=== PATIENT | male | born 1950 | race Caucasian/White ===

== ENCOUNTER 2020-11-13 05:41 | Day surgery (SDC) | payer MEDICARE, BC ==
[2020-11-02 13:59] LABS: BASOPHILS # (AUTO) 0.1 X10'3 (0-0.2); BASOPHILS % (AUTO) 0.8 % (0-1); EOSINOPHILS # (AUTO) 0.4 X10'3 (0-0.9); EOSINOPHILS % (AUTO) 5.4 % (0-6); LYMPHOCYTES # (AUTO) 1.5 X10'3 (1.1-4.8); LYMPHOCYTES % (AUTO) 20.3 % (21-51); MEAN CORPUSCULAR HEMOGLOBIN 35.1 PG (27.0-31.0); MEAN CORPUSCULAR HGB CONC 34.7 g/dL (33.0-36.5); MEAN CORPUSCULAR VOLUME 101.2 FL (78-98); MEAN PLATELET VOLUME 7.7 FL (7.4-10.4); MONOCYTES # (AUTO) 0.9 X10'3 (0-0.9); MONOCYTES % (AUTO) 11.8 % (2-12); NEUTROPHILS # (AUTO) 4.6 X10'3 (1.8-7.7); NEUTROPHILS % (AUTO) 61.7 % (42-75); PRE OP HEMATOCRIT 43.1 % (42.0-52.0); PRE OP PLATELET COUNT 267 X10'3 (140-440); RED BLOOD COUNT 4.26 X10'6 (4.70-6.10); RED CELL DISTRIBUTION WIDTH 14.1 % (11.5-14.5)
[2020-11-02 14:12] LABS: ALBUMIN 3.5 G/DL (3.4-5.0); ALKALINE PHOSPHATASE 61 IU/L (46-116); BLOOD UREA NITROGEN 12 MG/DL (7-18); BUN/CREATININE RATIO 10.2 (5.4-32.0); CALCIUM 8.9 MG/DL (8.5-10.1); CHLORIDE 104 MMOL/L (99-107); CREATININE 1.18 MG/DL (0.60-1.10); PRE OP ALT 46 U/L (30-65); PRE OP ANION GAP 10 (8-16); PRE OP AST 31 U/L (10-37); PRE OP BILIRUB, TOTAL 0.9 MG/DL (0.0-1.0); PRE OP GLUCOSE 126 MG/DL (70-104); PRE OP POTASSIUM 3.9 MMOL/L (3.4-5.1); PRE OP SODIUM 138 MMOL/L (135-145); TOTAL CARBON DIOXIDE 24.3 MMOL/L (24-32); eGFR 61 ML/MIN
[~2020-11-13] VITALS: Ht 167.6 cm; Wt 105.1 kg
[~2020-11-13 05:41] MED LIST: AMLO2.5T2 PO; ATOR40TA PO; CARV3.122 PO; DOCUMENT DATE & TIME OF BETA-BLOCKER PO ONE; LISI40TA13 PO; MELO-102 PO; ceFAZolin 2gm in dextrose, iso 50 ML IV ONE; famotidine 20mg tablet PO ONE; ringers solution, lacted 1,000 ML IV SCH
[2020-11-13 05:50] VITALS: BP 136/69
[2020-11-13] MEDS ORDERED: meperidine/PF 25mg/ml syringe IV PRN ×3 (07:25)
[2020-11-13] MEDS ORDERED: proCHLORperazine 10 MG/2 ml inj IV PRN (07:25)
[2020-11-13] MEDS ORDERED: ondansetron/PF 4mg/2ml inj IV PRN (07:25)
[2020-11-13] MEDS ORDERED: ringers solution, lacted 1,000 ML IV SCH (07:25)
[2020-11-13] MEDS ORDERED: morphine 4 MG/ML inj SYRINge IV PRN (07:25)
[2020-11-13] MEDS ORDERED: morphine 2 MG/ML inj. syringe IV PRN (07:25)
[2020-11-13] MEDS ORDERED: BUPIVAcaine/PF 2.5mg/ml (0.25%) 10ml vial ONE (08:36)
[2020-11-13] MEDS ORDERED: fentaNYL/PF 50MCG/1 ML 2ML syringe ONE (08:40)
[2020-11-13] MEDS ORDERED: midazolam 1 mg/ML 2ml injection ONE (08:41)
[2020-11-13] MEDS ORDERED: LIDOcaine 0.5% (5mg/ml) 50ml vial ONE (08:42)
[2020-11-13 09:07] VITALS: BP 143/73
--- NOTE | 2020-11-13 09:07 | NUR ---
Received from OR via , accompanied by Anesthesiologist DR WHITNEY and report given by Anesthesiolgist. AWAKE AND DEV PAIN. VITALS STABLE. DRESSING DI. FINGERS WARM AND PINK.
[2020-11-13 09:17] VITALS: BP 131/64
[2020-11-13 09:27] VITALS: BP 134/67
[2020-11-13 09:37] VITALS: BP 156/78
--- NOTE | 2020-11-13 09:57 | NUR ---
AWAKE AND ORIENTED. VITALS STABLE. DRESSING DI. DEV PAIN. HOME WITH HIS AT THIS TIME.
== END 2020-11-13 09:57 | disposition home or self-care (01) ==
LOC: PAS 05:41
PROVIDERS: ATTEND Orthopaedic Surgery Hand Surgery
DX: G56.01 Carpal tunnel syndrome, right upper limb (principal); Z20.822 Contact with and (suspected) exposure to COVID-19; I10 Essential (primary) hypertension; I25.10 Atherosclerotic heart disease of native coronary artery without angina pectoris; I25.2 Old myocardial infarction; E66.9 Obesity, unspecified; Z68.37 Body mass index [BMI] 37.0-37.9, adult; Z95.1 Presence of aortocoronary bypass graft; Z90.49 Acquired absence of other specified parts of digestive tract; Z98.890 Other specified postprocedural states; Z72.89 Other problems related to lifestyle; Z79.899 Other long term (current) drug therapy; Z85.028 Personal history of other malignant neoplasm of stomach; Z87.891 Personal history of nicotine dependence
CPT/HCPCS: 36415; 64721; 80053; 82948; 85025; 93005; J2001; J2250; J3010; J3490; U0003; 87635; A4215; J7120

== ENCOUNTER 2020-12-11 05:31 | Day surgery (SDC) | payer MEDICARE, BC ==
[2020-12-04 14:25] LABS: BASOPHILS # (AUTO) 0.1 X10'3 (0-0.2); BASOPHILS % (AUTO) 0.9 % (0-1); EOSINOPHILS # (AUTO) 0.7 X10'3 (0-0.9); LYMPHOCYTES # (AUTO) 1.5 X10'3 (1.1-4.8); LYMPHOCYTES % (AUTO) 18.1 % (21-51); MEAN CORPUSCULAR HEMOGLOBIN 35.2 PG (27.0-31.0); MEAN CORPUSCULAR VOLUME 103.6 FL (78-98); MEAN PLATELET VOLUME 7.6 FL (7.4-10.4); MONOCYTES # (AUTO) 0.9 X10'3 (0-0.9); MONOCYTES % (AUTO) 11.2 % (2-12); NEUTROPHILS # (AUTO) 5.1 X10'3 (1.8-7.7); NEUTROPHILS % (AUTO) 61.8 % (42-75); PRE OP HEMATOCRIT 45.2 % (42.0-52.0); PRE OP HEMOGLOBIN 15.4 g/dL (14.0-17.9); PRE OP PLATELET COUNT 273 X10'3 (140-440); RED BLOOD COUNT 4.36 X10'6 (4.70-6.10); RED CELL DISTRIBUTION WIDTH 14.3 % (11.5-14.5)
[2020-12-04 14:40] LABS: ALBUMIN 3.6 G/DL (3.4-5.0); ALKALINE PHOSPHATASE 73 IU/L (46-116); BLOOD UREA NITROGEN 14 MG/DL (7-18); BUN/CREATININE RATIO 12.5 (5.4-32.0); CHLORIDE 105 MMOL/L (99-107); CREATININE 1.12 MG/DL (0.60-1.10); PRE OP ALT 42 U/L (30-65); PRE OP ANION GAP 9 (8-16); PRE OP AST 29 U/L (10-37); PRE OP BILIRUB, TOTAL 0.8 MG/DL (0.0-1.0); PRE OP GLUCOSE 167 MG/DL (70-104); PRE OP POTASSIUM 3.9 MMOL/L (3.4-5.1); PRE OP SODIUM 140 MMOL/L (135-145); TOTAL PROTEIN 7.2 G/DL (6.4-8.2); eGFR 65 ML/MIN
[~2020-12-11] VITALS: Ht 167.6 cm; Wt 102.6 kg
[~2020-12-11 05:31] MED LIST changes: -ceFAZolin 2gm in dextrose, iso 50 ML IV ONE; +cefazolin/dext.iso 2gm/100ml 100 ML IV ONE
[2020-12-11 05:40] VITALS: BP 124/67
[2020-12-11] MEDS ORDERED: BUPIVAcaine/PF 2.5 mg/ml (0.25%) 30ml vial ONE (06:43)
[2020-12-11] MEDS ORDERED: fentaNYL/PF 50MCG/1 ML 2ML syringe ONE (07:40)
[2020-12-11] MEDS ORDERED: midazolam 1 mg/ML 2ml injection ONE (07:40)
[2020-12-11] MEDS ORDERED: LIDOcaine 0.5% (5mg/ml) 50ml vial ONE (07:42)
[2020-12-11] MEDS ORDERED: propofol inj 20 ML IV ONE (07:57)
[2020-12-11 08:10] VITALS: BP 121/66
[2020-12-11] MEDS ORDERED: hydrALAZINE 20mg/ml inj. IV PRN (08:10)
[2020-12-11] MEDS ORDERED: ringers solution, lacted 1,000 ML IV SCH (08:10)
[2020-12-11] MEDS ORDERED: morphine 2 MG/ML inj. syringe IV PRN (08:10)
[2020-12-11] MEDS ORDERED: ondansetron/PF 4mg/2ml inj IV PRN (08:10)
[2020-12-11] MEDS ORDERED: acetaminophen 1,000mg/100ml IV 100 ML IV PRN (08:10)
[2020-12-11] MEDS ORDERED: labetalol 20mg/4ml (5mg/ml) syringe IV PRN (08:10)
[2020-12-11] MEDS ORDERED: morphine 4 MG/ML inj SYRINge IV PRN (08:10)
[2020-12-11] MEDS ORDERED: meperidine/PF 25mg/ml syringe IV PRN ×3 (08:10)
[2020-12-11] MEDS ORDERED: proCHLORperazine 10 MG/2 ml inj IV PRN (08:10)
--- NOTE | 2020-12-11 08:10 | NUR ---
ADMITTED TO PACU FROM OR ACCOMPANIED BY ANESTHESIA. INTIAL PHYSICAL ASSESSMENT DONE AND RECORDED. REPORT RECEIVED FROM ANESTHESIA.
[2020-12-11 08:20] VITALS: BP 118/62
[2020-12-11 08:30] VITALS: BP 117/66
[2020-12-11 08:40] VITALS: BP 116/55
--- NOTE | 2020-12-11 08:40 | NUR ---
DISCHARGE CRITERIA MET, DISCHARGE INSTRUCTIONS GIVEN, DEMONSTRATES VERBAL UNDERSTANDING. DISCHARGED HOME IN GOOD CONDITION.
== END 2020-12-11 08:40 | disposition home or self-care (01) ==
LOC: PAS 05:31 → EDUNIT# 08:15 → PAS 08:40
PROVIDERS: ATTEND Orthopaedic Surgery Hand Surgery
DX: G56.02 Carpal tunnel syndrome, left upper limb (principal); I10 Essential (primary) hypertension; I25.10 Atherosclerotic heart disease of native coronary artery without angina pectoris; E78.00 Pure hypercholesterolemia, unspecified; E66.9 Obesity, unspecified; Z68.37 Body mass index [BMI] 37.0-37.9, adult; Z20.822 Contact with and (suspected) exposure to COVID-19; Z98.890 Other specified postprocedural states; Z95.1 Presence of aortocoronary bypass graft; Z90.49 Acquired absence of other specified parts of digestive tract; Z85.038 Personal history of other malignant neoplasm of large intestine; Z72.89 Other problems related to lifestyle; Z79.899 Other long term (current) drug therapy; Z87.891 Personal history of nicotine dependence
CPT/HCPCS: 36415; 64721; 80053; 82948; 85025; A6222; J2001; J2250; J2704; J3010; J3490; U0003; A4215; J7120